=== PATIENT | female | born 1960 | race Caucasian/White ===

== ENCOUNTER 2022-10-13 13:49 | Emergency (ER) | payer OTHER ==
[~2022-10-13] VITALS: Ht 167.6 cm; Wt 54.5 kg
[2022-10-13 14:17] VITALS: BP 133/86
[2022-10-13] MEDS ORDERED: ondansetron 4mg rapidly disintigrating tab PO ONE (17:45)
[2022-10-13] MEDS ORDERED: ketorolac tromethamine 15mg/ml inj. IM ONE (17:45)
[2022-10-13] MEDS ORDERED: morphine 4 MG/ML inj SYRINge IM ONE (17:45)
[2022-10-13] MEDS ORDERED: ONDA4TAB12 PO (18:31)
[2022-10-13] MEDS ORDERED: HYDR-3965 PO (18:31)
== END 2022-10-13 18:57 | disposition home or self-care (01) ==
LOC: ER 13:50
DX: M54.50 Low back pain, unspecified (principal); R20.0 Anesthesia of skin; G89.29 Other chronic pain; Z88.5 Allergy status to narcotic agent
CPT/HCPCS: 72131; 96372; 99285; J1885; J2270

== ENCOUNTER 2022-11-30 11:12 | Emergency (ER) | payer OTHER ==
[~2022-11-30] VITALS: Ht 167.6 cm; Wt 56.8 kg
[~2022-11-30 11:12] MED LIST: ONDA4TAB12 PO
[2022-11-30 14:20] VITALS: BP 166/100
[2022-11-30] MEDS ORDERED: orphenadrine citrate 60mg/2ml inj. IM ONE (14:30)
[2022-11-30] MEDS ORDERED: oxyCODONE/APAP 5-325mg tablet PO ONE (14:30)
[2022-11-30] MEDS ORDERED: TRAM50TA2 PO (15:55)
[2022-11-30] MEDS ORDERED: ORPH100T2 PO (15:55)
== END 2022-11-30 16:13 | disposition home or self-care (01) ==
LOC: ER 11:12
DX: M54.6 Pain in thoracic spine (principal); M54.50 Low back pain, unspecified; M62.830 Muscle spasm of back; G89.29 Other chronic pain; Z98.890 Other specified postprocedural states; Z79.899 Other long term (current) drug therapy
CPT/HCPCS: 72070; 96372; 99283; J2360

== ENCOUNTER 2023-11-16 08:35 | Emergency (ER) | payer MEDICARE, OTHER ==
[~2023-11-16] VITALS: Ht 167.6 cm; Wt 59.1 kg
[~2023-11-16 08:35] MED LIST changes: +ORPH100T4 PO
[2023-11-16 08:40] VITALS: BP 155/113; PULSE 73; RESP 18; TEMP 97.8; O2SAT 98
[2023-11-16] MEDS ORDERED: HYDR-3965 PO (09:31)
== END 2023-11-16 10:11 | disposition home or self-care (01) ==
LOC: ER 08:36
DX: T24.212A Burn of second degree of left thigh, initial encounter (principal); T24.211A Burn of second degree of right thigh, initial encounter; Z88.5 Allergy status to narcotic agent; Z79.899 Other long term (current) drug therapy; X08.8XXA Exposure to other specified smoke, fire and flames, initial encounter; Y93.89 Activity, other specified; Y92.89 Other specified places as the place of occurrence of the external cause; Y99.8 Other external cause status
CPT/HCPCS: 16020; 99282; A6223; A6258; A6449